=== PATIENT | female | born 1960 | race African-American/Black ===

== ENCOUNTER 2018-05-09 22:14 | Emergency (ER) | payer MEDICAID ==
[~2018-05-09] VITALS: Ht 157.5 cm; Wt 76.2 kg
[2018-05-09 23:00] VITALS: BP 145/93
[2018-05-09] MEDS ORDERED: IBUPROFEN600 MG ORAL (23:02)
[2018-05-09] MEDS ORDERED: AMOXICILLIN500 MG ORAL (23:02)
--- NOTE | 2018-05-09 23:02 | Emergency Room Report ---
History of Present Illness General Chief Complaint: Earache Source: Patient Present Illness HPI Is a 58-year-old female presents with left ear pain. She has a foreign body in left ear and saw her primary care doctor yesterday. He irrigated but was unsuccessful getting it out. She was referred to an ENT doctor but he was not there. She came here because of increasing pain. No drainage. No fever chills but no cough or congestion. Allergies: Coded Allergies: No Known Allergies (Unverified , 05/09/18) Patient History Past Medical History: see triage record, old chart reviewed Past Surgical History: other Pertinent Family History: none Social History: Denies: smoking Now: No Immunizations: other Reviewed Nursing Documentation: PMH: Agreed; PSxH: Agreed Review of Systems Eye: Denies: eye pain, blurred vision ENT: Reports: ear pain; Denies: nose congestion, throat swelling Respiratory: Denies: cough, shortness of breath Cardiovascular: Denies: chest pain, palpitations Gastrointestinal: Denies: abdominal pain, diarrhea, nausea, vomiting Musculoskeletal: Denies: back pain, joint pain Skin: Denies: rash Neurological: Denies: headache, numbness Endocrine: Denies: increased thirst, increased urine Hematologic/Lymphatic: Denies: easy bruising All Other Systems: negative except mentioned in HPI Physical Exam Vital Signs Date Time Temp Pulse Resp B/P (MAP) Pulse Ox O2 Delivery O2 Flow Rate FiO2 05/09/18 22:16 98.5 96 18 164/103 99 Room Air 98.4 vitals with htn Sp02 EP Interpretation: reviewed, normal General Appearance: well appearing, no apparent distress, alert Head: normocephalic, atraumatic Eyes: bilateral eye PERRL, bilateral eye EOMI ENT: hearing grossly normal, normal pharynx, other - left ear with FB (black plastic). Rt Tm is bulging and has effusion Neck: full range of motion, supple, no meningismus Respiratory: chest non-tender, lungs clear, normal breath sounds Cardiovascular #1: regular rate, rhythm, no murmur Gastrointestinal: normal bowel sounds, non tender, no mass, no organomegaly, no bruit, non-distended Musculoskeletal: back normal, gait/station normal, normal range of motion Psychiatric: mood/affect normal Skin: warm/dry Procedures Additional Procedure Procedure Narrative Procedure: Foreign body removal Indication: Foreign body in left ear canal Description: With an alligator forcep I removed the plastic tip of her ear plug from the ear. On recheck TMs erythematous. There is no perforation or bleeding. Patient tolerated procedure without a problem. Medical Decision Making Diagnostic Impression: Primary Impression: Foreign body in left ear, initial encounter Additional Impression: Otitis media of both ears Qualified Codes: H66.93 - Otitis media, unspecified, bilateral ER Course Patient with a foreign body to the ear canal. There is evidence of otitis media also. Probably unrelated to this. We'll discharge home. Last Vital Signs Date Time Temp Pulse Resp B/P (MAP) Pulse Ox O2 Delivery O2 Flow Rate FiO2 05/09/18 22:16 98.5 96 18 164/103 99 Room Air 98.4 Status: improved Disposition: HOME, SELF-CARE Condition: Stable Scripts Ibuprofen* (MOTRIN*) 600 Mg Tablet 600 MG ORAL THREE TIMES A DAY, #30 TAB 0 Refills Prov: NAHOMI TRAVIS M.D. 05/09/18 Amoxicillin* (AMOXIL*) 500 Mg Capsule 500 MG ORAL THREE TIMES A DAY, #21 CAP Prov: NAHOMI TRAVIS M.D. 05/09/18 Referrals: [facility],REFERRING (PCP) Patient Instructions: Otitis Media, Adult, [id number] Additional Instructions: Follow-up with your doctor in 7 days. Return if worse. NAHOMI TRAVIS M.D. May 09, 2018 23:02
== END 2018-05-09 23:07 | disposition home or self-care (01) ==
LOC: EMR 22:25
DX: T16.2XXA Foreign body in left ear, initial encounter (principal); X58.XXXA Exposure to other specified factors, initial encounter; Y92.019 Unspecified place in single-family (private) house as the place of occurrence of the external cause; H66.93 Otitis media, unspecified, bilateral
CPT/HCPCS: 99282